=== PATIENT | male | born 2000 | race Two or more races ===

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

== ENCOUNTER 2022-02-07 12:18 | Emergency (ER) | payer OTHER ==
[~2022-02-07] VITALS: Ht 180.3 cm; Wt 78.5 kg
== END 2022-02-07 15:06 | disposition home or self-care (01) ==
LOC: EMR PED 12:18
DX: M25.562 Pain in left knee (principal); Z88.0 Allergy status to penicillin

== ENCOUNTER 2025-07-01 14:28 | Emergency (ER) | payer OTHER ==
[~2025-07-01] VITALS: Ht 182.9 cm; Wt 85.3 kg
[2025-07-01] MEDS ORDERED: KETOROLAC TROMETHAMINE 30 MG VIAL IM ONE (16:15)
[2025-07-01] MEDS ORDERED: KETOROLAC TROMETHAMINE 30 MG VIAL ONE (18:40)
[2025-07-01] MEDS ORDERED: DICLOFENAC SODI50 MG PO (19:17)
== END 2025-07-01 23:06 ==
LOC: ER 14:28
DX: G89.11 Acute pain due to trauma (principal); M25.572 Pain in left ankle and joints of left foot; M79.672 Pain in left foot; Z88.0 Allergy status to penicillin